=== PATIENT | female | born 1965 | race Caucasian/White ===

== ENCOUNTER → 2020-04-25 13:14 | Outpatient (CLI) | payer OTHER, SELFPAY ==
--- NOTE | ~2020-04-25 | MM_ITS ---
EXAMINATION: MM screening rama BI w migue HISTORY: Screening TECHNIQUE: Craniocaudal and mediolateral oblique 3-D tomosynthesis images were obtained and synthetic 2-D images were generated. CAD analysis was submitted and interpreted. COMPARISON: Comparison to multiple prior studies sequentially, with oldest reviewed study dated 03/2015. BREAST PARENCHYMAL COMPOSITION: There are scattered areas of fibroglandular density. FINDINGS: Left breast asymmetry laterally is stable. There is no evidence of suspicious mass, calcifi cation, or architectural distortion to suggest malignancy in either breast. There has been no suspici ous interval change. IMPRESSION: 1. No mammographic evidence of malignancy. 2. Recommend routine screening mammography in one year. BI-RADS Category 1: Negative Reviewed, dictated and finalized at location A.
== END ==
PROVIDERS: PCP Emergency Medicine; Visit Provider Emergency Medicine
DX: Z12.31 Encounter for screening mammogram for malignant neoplasm of breast (principal)
CPT/HCPCS: 77063; 77067

== ENCOUNTER → 2021-05-27 16:26 | Outpatient (CLI) | payer OTHER, SELFPAY ==
--- NOTE | ~2021-05-27 | MM_ITS ---
EXAMINATION: MM screening [facility] BI w migue HISTORY: Screening TECHNIQUE: Craniocaudal and mediolateral oblique 3-D tomosynthesis images were obtained and synthetic 2-D images were generated. CAD analysis was submitted and interpreted. COMPARISON: Comparison to multiple prior studies sequentially, with oldest reviewed study dated 05/2016. BREAST PARENCHYMAL COMPOSITION: There are scattered areas of fibroglandular density. FINDINGS: There is no evidence of suspicious mass, calcification, or architectural distortion to sugg est malignancy in either breast. There has been no suspicious interval change. IMPRESSION: 1. No mammographic evidence of malignancy. 2. Recommend routine screening mammography in one year. BI-RADS Category 1: Negative Reviewed, dictated and finalized at location A.
== END ==
PROVIDERS: PCP Emergency Medicine; Visit Provider Emergency Medicine
DX: Z12.31 Encounter for screening mammogram for malignant neoplasm of breast (principal)
CPT/HCPCS: 77063; 77067

== ENCOUNTER 2021-11-02 12:06 | Emergency (ER) | payer OTHER, SELFPAY ==
[2021-11-02 12:09] VITALS: BP 181/72; PULSE 104; RESP 17; TEMP 36.7; O2SAT 99
--- NOTE | 2021-11-02 12:47 | ED.UPPEXIN ---
HPI - Extremity Injury (Upper) General Chief Complaint: Extremity Injury, Upper Stated Complaint: left arm injury Time Seen by Provider: 11/02/21 12:26 Source: patient History of Present Illness HPI narrative: Patient presents with left arm paresthesias. Patient reports she has had numbness in her left arm for approximately 1 year she had a Covid vaccination in that arm and has had intermittent symptoms since then. She notes her symptoms are more prominent after she gets a vaccination that arm also after she uses her arm more such as moving wood or working around the house. Her symptoms also become more prominent when she lifts her arm up(abduction). She has paresthesias that started at her shoulder and usually go down to the elbow however over the past week they have been going down to her fingers. She has not noted any weakness she denies any recent trauma she denies any headaches she denies any lower extremity symptoms chest pain or nausea vomiting. She has seen her chiropractor for this has not noted much relief. Related Data Allergies Allergy/AdvReac Type Severity Reaction Status Date / Time No Known Allergies Allergy Verified 11/02/21 12:13 Review of Systems Review of Systems: CONSTITUTIONAL: Denies fever, chills, or sweats. EYES: Denies visual changes, redness, or discharge. ENT: Denies rhinorrhea, congestion, sore throat, or otalgia. CARDIOVASCULAR: Denies chest pain, palpitations, or edema. RESPIRATORY: Denies cough or dyspnea. GASTROINTESTINAL: Denies abdominal pain, nausea, vomiting, or diarrhea. GENITOURINARY: Denies dysuria or hematuria. SKIN: Denies rash or itching. MUSCULOSKELETAL: Denies back pain, joint pain, or myalgia. NEUROLOGIC: Denies headache, dizziness, or weakness. PSYCHIATRIC: Denies anxiety or depression. All systems reviewed & are unremarkable except as noted in HPI and below PMFSH Past Medical History Medical History (Updated 11/02/21 @ 12:56 by Pasquale Kumar MD) Anxiety Exam Narrative: GENERAL: Well-appearing, well-nourished, and in no acute distress. HEAD: Normocephalic, atraumatic. EYES: PERRLA and EOMI. ENT: Nares clear, no rhinorrhea or epistaxis. Mucous membranes moist. NECK: Supple. No masses. No JVD Spurling's negative EXTREMITIES: No focal areas of tenderness on the left shoulder patient has full range of motion has 5 out of 5 strength in the bilateral upper extremity sensation intact to light touch in the bilateral upper extremity cap refill less than 2 seconds the bilateral upper extremity SKIN: Warm, dry, no rash. NEURO: No focal deficits. Alert and oriented x3. PSYCH: Normal mood and affect. Course Vital Signs Vital signs: Vital Signs Temperature 36.7 C 11/02/21 12:09 Pulse Rate 104 H 11/02/21 12:09 Respiratory Rate 17 11/02/21 12:09 Blood Pressure 181/72 H 11/02/21 12:09 Pulse Oximetry 99 11/02/21 12:09 Temperature 36.7 C 11/02/21 12:09 Pulse Rate 104 H 11/02/21 12:09 Respiratory Rate 17 11/02/21 12:09 Blood Pressure 181/72 H 11/02/21 12:09 Pulse Oximetry 99 11/02/21 12:09 MDM - Extremity Injury (Upper) MDM Narrative Medical decision making narrative: H&P as above, vss, pt looks clinically well, exam without focal neurological deficits,llabs/img considered, symptomatic relief available as needed, on reevaluation pt continues to looks clinically well. Suspect pinched nerve, dns fracture, dislocation, major neurovascular compromise, radiculopathy. plan to tx/monitor as op w/ pcm f/u findings/plan discussed with pt, pt agree/comfortable with plan, return precautions given Discharge Plan Discharge Clinical Impression: Arm paresthesia, left Patient Disposition: Home, Self-Care Condition: Improved Instructions: Antibiotic Form, Adhesive Capsulitis (ED), Exercises for Shoulder Flexion and Extension (ED), Exercises for Internal and External Shoulder Rotation (ED), Exercises for Shoulder Abduction and Adduction (ED) Additional
== END 2021-11-02 13:31 | disposition home or self-care (01) ==
PROVIDERS: Emergency Provider Emergency Medicine; PCP Emergency Medicine
DX: R20.2 Paresthesia of skin (principal)
CPT/HCPCS: 99282

== ENCOUNTER 2022-01-09 09:08 | Outpatient (CLI) | payer OTHER, SELFPAY ==
--- NOTE | ~2022-01-09 | US_ITS ---
EXAMINATION: US pelvic complete, US pelvic limited DATE: 01/09/2022 10:04 INDICATION: Pelvic pain. Dysuria. TECHNIQUE: Multiple transabdominal sonographic images of the pelvis were obtained. COMPARISON: None. FINDINGS: The uterus measures 7.5 x 3.3 x 4.6 cm. The endometrial complex measures 4-5 mm in thickness. The le ft and right ovaries are not visualized. There is no free fluid in the pelvis. Bladder appears normal with calculated prevoid volume of 362 mL. Borderline postvoid residual bladder volume of 41 mL. Bila teral ureteral jets visualized in the bladder on color Doppler IMPRESSION: 1. Borderline postvoid residual bladder volume of 41 mL. Otherwise unremarkable pelvic ultrasound. Reviewed, dictated and finalized at location B. IMPRESSION: 1. Borderline postvoid residual bladder volume of 41 mL. Otherwise unremarkable pelvic ultrasound.
--- NOTE | ~2022-01-09 | MMUS_ITS ---
EXAMINATION: MM diagnostic rama BI w migue, US breast RT limited HISTORY: Right axillary pain with right axillary lymphadenopathy. TECHNIQUE: Additional 3-D tomosynthesis images of the breasts were performed and synthetic 2-D images were generated. CAD analysis was submitted and interpreted. High resolution Limited right breast ult rasound was performed. COMPARISON: Comparison to multiple prior studies sequentially, with oldest reviewed study dated 05/2016. BREAST PARENCHYMAL COMPOSITION: Breast composed of scattered areas of fibroglandular density FINDINGS: MAMMOGRAPHIC FINDINGS: There are no suspicious masses, calcifications or architectural distortion to suggest malignancy. ULTRASOUND: Limited right breast ultrasound: There are multiple normal-appearing lymph nodes in the right axilla with a fatty hilum. In addition, at 10:00, 11.5 cm from the nipple there is an oval circumscribed hyp oechoic mass with posterior acoustic enhancement, internal vascularity and effaced hilum measuring up to 1.8 cm, suspicious for pathologic lymph node. IMPRESSION: 1. Probable pathologic right axillary lymph node corresponding to the area of palpable concern. 2. Ultrasound-guided biopsy recommended. BI-RADS category 4, suspicious findings. Reviewed, dictated and finalized at location A. IMPRESSION: 1. Probable pathologic right axillary lymph node corresponding to the area of p alpable concern. 2. Ultrasound-guided biopsy recommended. BI-RADS category 4, suspicious findings.
== END 2022-01-09 09:09 ==
PROVIDERS: PCP Physician Assistant; Visit Provider Physician Assistant
DX: N60.01 Solitary cyst of right breast (principal); R92.8 Other abnormal and inconclusive findings on diagnostic imaging of breast
CPT/HCPCS: 76642; 76856; 76857; 77062; 77066; G0279

== ENCOUNTER 2022-01-23 09:04 | Outpatient (CLI) | payer OTHER, SELFPAY ==
--- NOTE | ~2022-01-23 | US_ITS ---
EXAMINATION: US biopsy lymph node DATE: 01/23/2022 10:15 INDICATION: Enlarged right axillary lymph node TECHNIQUE: The procedure including the risks and benefits was discussed with the patient. Risks discu ssed included bleeding and infection. The patient understood the risks and agreed to proceed. The sk in overlying the right axilla was prepped and draped in usual sterile fashion. Anesthetic was admini stered with 1% lidocaine subcutaneously. A 14 gauge outer needle was advanced into the lymph node of concern utilizing continuous ultrasound guidance. 5 core biopsy specimens were obtained, 2 placed in formalin and 3 in RPMI media. The needle was removed and the entry site was cleaned and dressed. Th ere were no immediate complications. FINDINGS: Images demonstrate a round hypoechoic 1.9 cm mass likely an enlarged lymph node at the right axilla. Subsequent images demonstrate biopsy needle advanced through the mass. IMPRESSION: 1. Successful ultrasound-guided biopsy of a 1.9 cm hypoechoic mass, likely an enlarged lymph node at the right axilla. Reviewed, dictated and finalized at location A. IMPRESSION: 1. Successful ultrasound-guided biopsy of a 1.9 cm hypoechoic mass, likely an e nlarged lymph node at the right axilla.
== END 2022-01-23 09:05 | disposition home or self-care (01) ==
PROVIDERS: PCP Physician Assistant; Visit Provider Physician Assistant
DX: R92.8 Other abnormal and inconclusive findings on diagnostic imaging of breast (principal); R59.0 Localized enlarged lymph nodes; D05.11 Intraductal carcinoma in situ of right breast
CPT/HCPCS: 38505; 76942; 88305; 88307; 88342; 88360

== ENCOUNTER 2022-05-29 10:57 | Emergency (ER) | payer OTHER, SELFPAY ==
--- NOTE | 2022-05-29 11:39 | ED.URI ---
HPI - URI/Sore Throat General Chief Complaint: Upper Respiratory Infection Stated Complaint: cough up phlem, sore throat Time Seen by Provider: 05/29/22 11:39 Source: patient and RN notes reviewed Mode of arrival: ambulatory Limitations: no limitations History of Present Illness HPI Narrative: 56 y/o female with stage 4 lung cancer, presented for c/o cough productive of white sputum with sinus congestion for 2 days. She is scheduled to start chemotherapy in 4 days, and a course of dexamethasone starts the day prior to treatment. Endorses the grandkids and with similar symptoms, and he received abx yesterday. she had negative covid test at home today. Denies chest pain, shortness of breath, wheezing, hemoptysis, fatigue, fevers or chills. Smokes cigarettes occasionally. MD elicited complaint: cough Related Data Home Medications Medication Instructions Recorded Confirmed Alimta 05/29/22 Keytruda 05/29/22 alprazolam 1 mg tablet mg 05/29/22 aspirin 81 mg capsule 81 mg PO DAILY 05/29/22 05/29/22 carboplatin 05/29/22 dexamethasone 4 mg tablet mg 05/29/22 folic acid 1 mg tablet 05/29/22 irbesartan 150 tablet 05/29/22 mg-hydrochlorothiazide 12.5 mg tablet metformin 500 mg tablet mg 05/29/22 ondansetron HCl 8 mg tablet mg 05/29/22 pravastatin 20 mg tablet mg 05/29/22 Allergies Allergy/AdvReac Type Severity Reaction Status Date / Time No Known Allergies Allergy Verified 05/29/22 11:10 Review of Systems Review of Systems: CONSTITUTIONAL: Denies malaise, chills, sweats, fever EYES: Denies visual changes, redness, or discharge ENT: Reports rhinorrhea, congestion, denies sinus pain, otalgia, sore throat CARDIOVASCULAR: Denies chest pain, palpitations, edema RESPIRATORY: Reports cough, post nasal drainage. Denies dyspnea GASTROINTESTINAL: Denies abdominal pain, nausea, vomiting, diarrhea SKIN: Denies rash or itching MUSCULOSKELETAL: Denies myalgia NEUROLOGIC: Denies headache Exam Narrative: GENERAL: well-appearing EYES: conjunctivae clear ENT: Mucous membranes moist. TM pearly rhodes with dull light reflex bilaterally; no tragal tenderness. Oropharynx erythematous without lesions or exudate, no drooling, no hoarseness, no trismus, uvula midline. No tripod positioning, muffled voice, soft palate or pharyngeal wall bulging NECK: Supple. No lymphadenopathy CHEST: Clear to auscultation, breath sounds equal. No respiratory distress, speaks in full sentences. HEART: Regular rate and rhythm. SKIN: Warm, dry, no rash. NEURO: Alert and oriented x3. Course Course Emergency Course: Patient is aware of diagnosis, understands and agrees to treatment plan. Anticipatory guidance given. Patient agrees to follow-up as directed and is aware of reasons to seek care at the emergency department. Portions of this record may have been created with voice recognition software Level of Care: Express Care Visit Vital Signs Vital signs: reviewed MDM - URI/Sore Throat MDM Narrative Medical decision making narrative: Given pt's diagnosis, she is advised to monitor symptoms after starting Zyrtec. Should symptoms worsen significantly she is advised to start the abx. She is well appearing. Advised supportive measures and signs/symptoms to go to the ER. Pt is appropriate for outpt treatment and f/u. Differential Diagnosis Differential diagnosis: Likely upper respiratory infection, sinusitis and viral infection Discharge Plan Discharge Clinical Impression: Upper respiratory infection Patient Disposition: Home, Self-Care Condition: Stable Instructions: Antibiotic Form, Upper Respiratory Infection (ED), Allergic Rhinitis (ED) Additional Instructions: Recommend saline nasal spray and Zyrtec (or Claritin/Taylor) over the counter Cough syrup may cause drowsiness; avoid driving or take it at night time. Tylenol 1000mg every 8 hours as needed for pain/fever Symptomatic treatment includes: rest, fluids, and
== END 2022-05-29 11:56 | disposition home or self-care (01) ==
PROVIDERS: Emergency Provider Nurse Practitioner Family
DX: J06.9 Acute upper respiratory infection, unspecified (principal); C34.90 Malignant neoplasm of unspecified part of unspecified bronchus or lung
CPT/HCPCS: 99203; G0463

== ENCOUNTER 2022-08-06 17:33 | Emergency (ER) | payer OTHER, SELFPAY ==
--- NOTE | 2022-08-06 17:46 | ED.URI ---
HPI - URI/Sore Throat General Chief Complaint: Upper Respiratory Infection Stated Complaint: sore throat Time Seen by Provider: 08/06/22 18:16 Source: patient and RN notes reviewed Mode of arrival: ambulatory Limitations: no limitations History of Present Illness HPI Narrative: 56-year-old female with history of stage IV lung cancer presents with concern for sore throat, cough, exposure to her grand children with strep throat. She denies fever, chills, sweats. MD elicited complaint: cough and sore throat Related Data Home Medications Medication Instructions Recorded Confirmed Cholesterol Med 08/06/22 Htn Med. 08/06/22 alprazolam 1 mg tablet mg 08/06/22 dexamethasone 4 mg tablet mg 08/06/22 folic acid 1 mg tablet 08/06/22 Allergies Allergy/AdvReac Type Severity Reaction Status Date / Time No Known Allergies Allergy Verified 08/06/22 18:00 Review of Systems Review of Systems: CONSTITUTIONAL: Reports malaise. Denies chills, sweats, or fever. EYES: Denies visual changes, redness, or discharge. ENT: Denies rhinorrhea, congestion, sinus pain, otalgia. Reports sore throat. CARDIOVASCULAR: Denies chest pain, palpitations, or edema. RESPIRATORY: Reports cough. Denies dyspnea. GASTROINTESTINAL: Denies abdominal pain, nausea, vomiting, diarrhea SKIN: Denies rash or itching. MUSCULOSKELETAL: Denies myalgia. NEUROLOGIC: Denies headache. All systems reviewed & are unremarkable except as noted in HPI and below PMFSH Family History Family History (Updated 04/11/16 @ 23:21 by DOCTOR UNKNOWN) Father Patient's father is in good health Sibling Patient's sister is in good health Patient's brother is in good health Patient's brother is Mother Family history of lung cancer Patient's mother is Social History Social History Alcohol intake: never Comments At time of signature, agree with nursing past medical, surgical, social and family history. There is no relevant family history pertinent to the presenting complaint Exam Narrative: GENERAL: Well-appearing, well-nourished, and in no acute distress. HEAD: Normocephalic EYES: PERRLA, conjunctivae clear ENT: Nares clear, turbinates edematous and erythematous, clear discharge. Mucous membranes moist. TM pearly rhodse with dull light reflex bilaterally; no tragal tenderness. Oropharynx not erythematous without lesions. Tonsils not enlarged and without exudate, no drooling, no hoarseness, no trismus, uvula midline. NECK: Supple. No lymphadenopathy CHEST: Clear to auscultation, breath sounds equal. No wheezing, rhonchi, rales, or stridor. No respiratory distress, speaks in full sentences. HEART: Regular rate and rhythm. No murmur heard. SKIN: Warm, dry, no rash. NEURO: Alert and oriented x3. PSYCH: Normal mood and affect Course Course Emergency Course: Patient is aware of diagnosis, understands and agrees to treatment plan. Anticipatory guidance given. Patient agrees to follow-up as directed and is aware of reasons to seek care at the emergency department. Portions of this record may have been created with voice recognition software Level of Care: Express Care Visit Vital Signs Vital signs: Reviewed. MDM - URI/Sore Throat MDM Narrative Medical decision making narrative: Differential diagnosis considered: Butt virus, strep pharyngitis, allergic rhinitis, upper respiratory tract infection, sinusitis, rhinosinusitis, nasopharyngitis. viral pharyngitis, otitis media, otitis externa, pneumonia, bronchitis, viral cough syndrome, viral syndrome, and influenza. Exam findings show no acute concerns or changes; patient is non-toxic appearing and is in no distress. Patient is appropriate for outpatient treatment and follow-up. Lab Data Attestation: I reviewed the patient's lab results. Critical Care Time Critical Care Time Critical Care Time: No Discharge Plan Discharge Clinical Impression: Exposure to strep t
[2022-08-06 18:08] VITALS: BP 130/79; PULSE 108; RESP 16; TEMP 37; O2SAT 96
== END 2022-08-06 18:30 | disposition home or self-care (01) ==
PROVIDERS: Emergency Provider Nurse Practitioner
DX: Z20.818 Contact with and (suspected) exposure to other bacterial communicable diseases (principal); C34.90 Malignant neoplasm of unspecified part of unspecified bronchus or lung; E78.00 Pure hypercholesterolemia, unspecified; I10 Essential (primary) hypertension; F41.9 Anxiety disorder, unspecified
CPT/HCPCS: 87081; 87880; 99203; G0463

== ENCOUNTER 2022-11-26 10:45 | Emergency (ER) | payer OTHER, SELFPAY ==
--- NOTE | 2022-11-26 10:55 | ED.URI ---
HPI - URI/Sore Throat General Chief Complaint: Upper Respiratory Infection Stated Complaint: Sinus Time Seen by Provider: 11/26/22 10:56 Source: patient Mode of arrival: ambulatory Limitations: no limitations History of Present Illness HPI Narrative: Marina is a 57-year-old female patient presenting to the clinic today with complaints of sinus congestion, cough, sinus pressure x1 week. She reports she is going to be starting back up with chemo for lung cancer next week and is concerned about infection. States that she is blowing yellow nasal discharge. Cough is nonproductive. MD elicited complaint: sore throat and nasal congestion Related Data Home Medications Medication Instructions Recorded Confirmed Alimta 05/29/22 Keytruda 05/29/22 alprazolam 1 mg tablet mg 05/29/22 aspirin 81 mg capsule 81 mg PO DAILY 05/29/22 05/29/22 carboplatin 05/29/22 dexamethasone 4 mg tablet mg 05/29/22 folic acid 1 mg tablet 05/29/22 irbesartan 150 tablet 05/29/22 mg-hydrochlorothiazide 12.5 mg tablet metformin 500 mg tablet mg 05/29/22 ondansetron HCl 8 mg tablet mg 05/29/22 pravastatin 20 mg tablet mg 05/29/22 Allergies Allergy/AdvReac Type Severity Reaction Status Date / Time No Known Allergies Allergy Verified 05/29/22 11:10 Review of Systems Review of Systems: Pertinent positives per HPI. Patient denies any fever, chills, rash, headache, visual changes, dizziness, cough, shortness of breath, chest pain, palpitations, nausea, vomiting, diarrhea, constipation, abdominal pain, or any urinary issues. PMFSH Comments At the time of my signature, I reviewed and agree with the nursing past medical, surgical, social, and family history. There is no relevant family history pertinent to the patient complaint. Exam Narrative: General: Well-developed, well nourished, in no apparent distress Head: Normocephalic, atraumatic Eyes: Pupils equally round and reactive to light bilaterally, EOM intact, sclera and conjunctive clear, no discharge, lids normal Ears: TMs intact and clear, ear canals clear, no drainage, grossly hearing normal. Nose: Nares patent, no discharge, no inflammation, no sinus tenderness. Mouth: Oral pharynx without lesions or masses, good dentition, MMM. Neck: Supple, trachea midline, no enlargement of anterior or posterior cervical nodes, no thyroid masses or goiter palpable. Cardio: Regular rate and rhythm, s1 and s2 normal, no murmur appreciated. Resp: Clear to auscultation bilaterally, no rhonchi, rales, wheezing or rubs Course Course Emergency Course: Portions of this record may have been created with voice recognition software. Level of Care: Express Care Visit Vital Signs Vital signs: Vital signs reviewed MDM - URI/Sore Throat MDM Narrative Medical decision making narrative: At the time of visit patient is resting comfortably on the exam table. I suspect patient has acute rhinosinusitis. Although her symptoms have only been going on for 1 week she is starting chemotherapy next week so I will go and treat her with an antibiotic to cover any infection as well as some prednisone. States she gets vaginal yeast infections when taking antibiotics so prescription for Diflucan was sent to the pharmacy and supportive measures were discussed with the patient she voiced understanding of discharge instructions and agrees to treatment plan. Differential Diagnosis Differential diagnosis: Likely upper respiratory infection, sinusitis, viral infection, influenza, pharyngitis and other (COVID) Discharge Plan Discharge Clinical Impression: Acute rhinosinusitis Patient Disposition: Home, Self-Care Condition: Stable Instructions: Antibiotic Form, Rhinosinusitis (ED) Additional Instructions: Take prescription medications only as prescribed-prednisone and Augmentin Increase fluids and stay well hydrated Tylenol/motrin for pain/fever Flonase and OTC antihistamines as directed
[2022-11-26 10:58] VITALS: BP 129/76; PULSE 107; RESP 16; TEMP 36.4; O2SAT 97
== END 2022-11-26 11:13 | disposition home or self-care (01) ==
PROVIDERS: Emergency Provider Nurse Practitioner Family; PCP Nurse Practitioner Family
DX: J01.90 Acute sinusitis, unspecified (principal); E78.00 Pure hypercholesterolemia, unspecified; I10 Essential (primary) hypertension; E11.9 Type 2 diabetes mellitus without complications; C34.90 Malignant neoplasm of unspecified part of unspecified bronchus or lung; Z86.16 Personal history of COVID-19
CPT/HCPCS: 99213; G0463

== ENCOUNTER 2023-06-25 08:34 | Emergency (ER) | payer OTHER, SELFPAY ==
[2023-06-25 08:49] VITALS: BP 103/72; PULSE 112; RESP 16; TEMP 37.1; O2SAT 96
[2023-06-25 08:54] VITALS: BP 103/72; PULSE 112; RESP 16; TEMP 37.1; O2SAT 96
--- NOTE | 2023-06-25 09:17 | ED.URI ---
HPI - URI/Sore Throat General Chief Complaint: Upper Respiratory Infection Stated Complaint: cough Time Seen by Provider: 06/25/23 09:00 Source: patient and RN notes reviewed Mode of arrival: ambulatory Limitations: no limitations History of Present Illness HPI Narrative: Patient presents today with a 4 to five-day history of productive cough with green sputum, postnasal drip, nasal congestion. Cough is worse at night when she is lying flat. Denies chest pain, shortness of breath, fever, sore throat. She has not tried any [id number] medication for symptoms prior to arrival. Patient is being treated at [facility] for stage IV lung cancer. She was on azithromycin last month prophylactically for exposure to strep throat and pneumonia, but was not sick at that time. She did call her oncologist when she became sick. They directed her to see her PCP. She called her PCP's office yesterday and scheduled an appointment for this morning. She showed up for her appointment this morning and was told she did not have a scheduled appointment, so she came to [facility] for evaluation. Related Data Home Medications Medication Instructions Recorded Confirmed alprazolam 1 mg tablet 1 mg DIRECTED 05/29/22 06/25/23 aspirin 81 mg capsule 81 mg PO DAILY 05/29/22 06/25/23 folic acid 1 mg tablet 1 mg DIRECTED 05/29/22 06/25/23 irbesartan 150 1 tablet DIRECTED 05/29/22 06/25/23 mg-hydrochlorothiazide 12.5 mg tablet pravastatin 20 mg tablet 20 mg DIRECTED 05/29/22 06/25/23 semaglutide 1 mg/dose (4 mg/3 mL) See Rx Instructions .Route .COMPLEX 06/25/23 06/25/23 subcutaneous pen injector (Ozempic) Allergies Allergy/AdvReac Type Severity Reaction Status Date / Time No Known Allergies Allergy Verified 06/25/23 08:50 Review of Systems Review of Systems: CONSTITUTIONAL: Denies body aches, fever, chills, or sweats. EYES: Denies visual changes, redness, or discharge. ENT: Denies rhinorrhea, sore throat, or otalgia.+ congestion, postnasal drip CARDIOVASCULAR: Denies chest pain, palpitations, or edema. RESPIRATORY: Denies dyspnea.+ cough GASTROINTESTINAL: Denies abdominal pain, nausea, vomiting, or diarrhea. GENITOURINARY: Denies dysuria or hematuria. SKIN: Denies rash, itching, or wounds. MUSCULOSKELETAL: Denies back pain, joint pain, or myalgia. NEUROLOGIC: Denies headache, numbness, tingling, or weakness. PSYCH: Denies depression or anxiety. [facility] Past Medical History Medical History (Updated 06/25/23 @ 09:22 by Mare Lee, TOW MATE, ) Diabetes Lung cancer Comments At time of signature, I have reviewed and agree with nursing past medical, surgical, social and family history unless otherwise noted. Please see nursing chart for further information. There is no relevant family history pertinent to the presenting complaint Exam Narrative: GENERAL: Well-appearing, well-nourished, and in no acute distress. HEAD: Normocephalic, atraumatic. EYES: EOMI. No redness or drainage. Conjunctivae normal. ENT: Mucous membranes pink and moist. Nares clear. No rhinorrhea. TMs normal bilaterally. Throat normal. Uvula midline. NECK: Normal AROM. Supple. No lymphadenopathy. CHEST: No respiratory distress. Slight inspiratory wheezes in the right upper and lower lobes, otherwise clear. HEART: Regular rate and rhythm. No murmur appreciated. Normal peripheral pulses. EXTREMITIES: Normal range of motion. No edema. SKIN: Warm, dry, no rash. Capillary refill normal. Normal skin turgor. NEURO: No focal deficits. Alert and oriented x3. Gait steady. PSYCH: Normal affect. No signs of depression or anxiety. Course Course Level of Care: Express Care Visit Vital Signs Vital signs: Vital Signs Temperature 98.7 F 06/25/23 08:49 Pulse Rate 112 H 06/25/23 08:49 Respiratory Rate 16 06/25/23 08:49 Blood Pressure 103/72 06/25/23 08:49 Pulse Oximetry 96 06/25/23 08:49 Oxygen Delivery Room
== END 2023-06-25 09:29 | disposition home or self-care (01) ==
PROVIDERS: Emergency Provider Nurse Practitioner; PCP Nurse Practitioner Family
DX: J06.9 Acute upper respiratory infection, unspecified (principal); E11.9 Type 2 diabetes mellitus without complications; C34.90 Malignant neoplasm of unspecified part of unspecified bronchus or lung; Z79.82 Long term (current) use of aspirin
CPT/HCPCS: 99213; G0463

== ENCOUNTER 2025-06-18 16:30 | Emergency (ER) | payer OTHER, SELFPAY ==
[2025-06-18 16:38] VITALS: BP 122/63; PULSE 96; RESP 16; TEMP 36.6; O2SAT 97
--- NOTE | 2025-06-18 16:52 | ED_ITS ---
HPI - Skin/Abscess/Foreign Bdy General Chief complaint: Skin/Abscess/Foreign Body Stated complaint: Bump on lip Patient presents to the [facility] with complaints of small slightly painful bump to the left upper lip that she noticed 2 days ago. Patient reports that when has been looked inside mouth thought he could see a small marshall to the area. Patient denies any changes to diet or any injury to the area. No history of abscesses. Denies any dental pain or pain with chewing. Denies fever, chills, body aches, for drainage from the area. Related Data Home Medications ?Medication ?Instructions ?Recorded ?Confirmed ?Last Taken ?Type alprazolam 1 mg tablet 1 mg DIRECTED 05/29/22 Unknown History aspirin 81 mg capsule 81 mg PO DAILY 05/29/2206/14 Unknown History folic acid 1 mg tablet 1 mg DIRECTED 05/29/22 Unknown History irbesartan 150 1 tablet DIRECTED 2 06/25/23 Unknown History mg-hydrochlorothiazide 12.5 mg tablet pravastatin 20 mg tablet 20 mg DIRECTED 05/29/22 1 Unknown History Cholesterol Med 08/06/22 Unknown History Htn Med. 08/06/22 Unknown History alprazolam 1 mg tablet mg 08/06/22 Unknown History dexamethasone 4 mg tablet mg 08/06/22 Unknown History folic acid 1 mg tablet 08/06/22 Unknown History semaglutide 1 mg/dose (4 mg/3 mL) See Rx Instructions .Route .COMPLEX 06/25/23 06/25/23 Unknown History subcutaneous pen injector (Ozempic) Allergies Allergy/AdvReac Type Severity Reaction Status Date / Time No Known Allergies Allergy Verified 06/18/25 16:31 Review of Systems Constitutional: Constitutional: Reports as per HPI, Denies chills, Denies fatigue, Denies fever(s) and Denies weakness Eyes: Eyes: Reports no additional eye complaints ENT: Reports as per HPI, Denies vertigo, Denies dizziness, Denies nasal congestion and Denies sore throat Comments: Small bump to left side upper lobe Cardiovascular: Cardiovascular: Reports no additional cardiovascular complaints Respiratory: Respiratory: Reports no additional respiratory complaints Gastrointestinal: Gastrointestinal: Reports no additional gastrointestinal complaints Genitourinary: Genitourinary: Reports no additional female genitourinary complaints Musculoskeletal: Musculoskeletal: Reports no additional musculoskeletal complaints Integumentary/Breasts: Skin/Breast: Reports as per HPI, Denies erythema, Denies rash and Denies skin ulcer Comments: small slightly painful bump left upper lobe Neurologic: Denies numbness and Denies weakness Psychiatric: Psychiatric: Reports no additional psychiatric complaints Endocrine: Endocrine: Reports no additional endocrine complaints Hematologic/Lymphatic: Hematologic/Lymphatic: Reports no additional hematologic/lymphatic complaints Allergic/Immunologic: Allergic/Immunologic: Reports no additional allergic/immunologic complaints [facility] Past Medical History Medical History (Updated 06/18/25 @ 16:53 by MARIELA Medina-C) Anxiety Diabetes Lung cancer Family History Family History (System 02/01/24 @ 08:26 by Salo Stanley) Father Patient's father is in good health Sibling Patient's sister is in good health Patient's brother is in good health Patient's brother is Mother Family history of lung cancer Patient's mother is Social History Social History (System 02/01/24 @ 08:26 by Salo Stanley) Alcohol intake: never Exam Const: General: healthy appearing and no acute distress Nutritional Appearance: well nourished Orientation/consciousness: patient oriented x3 Limitations: no limitations HENMT: Face and sinus: normal facial exam and sinuses nontender Mouth: Yes Normal oral and palatal mucosa present, No lip normal and Yes moist mucous membranes Teeth and gingiva: dentition normal Throat: posterior oropharynx normal Other: circular firm tender area noted to upper lip on left side. Very small area of pointing inside lip. no active drainage, crusting, erythema Neck: Neck: normal visual inspection and no lymphadenopathy Resp: Effort & Inspection: normal respiratory effort Auscultation: clear to auscultation bilaterally Cardio: Rate: regular rate Rhythm: regular rhythm Skin: General skin exam: normal color Rashes: no rashes Wounds: no wounds Neuro: General: patient oriented x3 Speech: normal speech Gait exam (Neuro): Normal gait present Psych: Mental Status: mental status grossly normal Affect: normal affect Attitude: cooperative Course Course Level of Care: Express Care Visit Vital Signs Vital signs: Vital Signs Temperature 97.9 F 06/18/25 16:38 Pulse Rate 96 06/18/25 16:38 Respiratory Rate 16 06/18/25 16:38 Blood Pressure 122/63 06/18/25 16:38 Pulse Oximetry 97 06/18/25 16:38 Oxygen Delivery Room Air 06/18/25 16:38 Temperature 97.9 F 06/18/25 16:38 Pulse Rate 96 06/18/25 16:38 Respiratory Rate 16 06/18/25 16:38 Blood Pressure 122/63 06/18/25 16:38 Pulse Oximetry 97 06/18/25 16:38 Oxygen Delivery Room Air 06/18/25 16:38 MDM - Skin/Abscess/Foreign Bdy MDM Narrative Medical decision making narrative: Likely abscess in nature due to small pointing and side but very firm area. Offered I&D the patient like to try antibiotics at this time 1st. The patient was evaluated by myself in the [facility] care. History is obtained from patient who is an independent historian and physical exam was performed. Available medical records were reviewed at this time. Exam findings show no acute concerns or changes; patient is non-toxic appearing and is in no distress. Patient is appropriate for outpatient treatment and follow-up. I have evaluated and discussed social determinants of health with the patient that could potentially impact subsequent diagnosis and treatment plans. Differential diagnosis and treatment plan were discussed with the patient. Patient agrees with discussion and after shared medical decision making agrees with plan of care. All questions were answered to the patient's satisfaction. Differential Diagnosis Differential diagnosis: Likely abscess of skin or subcutaneous tissue, urticaria, cellulitis, insect bites, impetigo and contact dermatitis Medical Records Attestation: I reviewed the patient's medical records. Discharge Plan Discharge Clinical Impression: Abscess or cellulitis, oral soft tissue Patient Disposition: Home Condition: Stable Instructions: Antibiotic Form, Abscess (ED) Additional Instructions: DO NOT pick at the area. This will only make the area worse and drive infection deeper. DO NOT pick at the area. This will only make the area worse and drive infection deeper. Clean with soap and water only; Avoid using alcohol and peroxide. apply warm compresses for 20 minute several times a day to help soften the drainage, this may help open the area and cause drainage to come out. Alternate Tylenol/ibuprofen for as needed for pain Acetaminophen(Tylenol) 650- 1000mg every 4-6hours with max of 4000mg/day. Nonsteroidal anti-inflammatory agent (NSAIDs-ibuprofen): 400mg every 4-6hours with max 2400mg/day Take antibiotic until it's gone. If you began to have multiple or reoccurring abscesses in these areas may use daily tea tree body washes or weekly chlorhexidine/Hibiclens washes, bleach baths, or Phisohex change razors or any shaving products you have used around this area. Using fresh towel daily while areas flared up. Please schedule a follow up visit with your personal physician for further evaluation and treatment within 3-5days OR if your symptoms persist, change or worsen significantly before you can contact your personal physician then please, without delay, go to the emergency department for further evaluation. Patient Language: Macedonian Prescriptions: New clindamycin HCl [Cleocin HCl] 300 mg capsule 300 mg PO Q8H Qty: 30 0RF No Action alprazolam 1 mg tablet folic acid 1 mg tablet dexamethasone 4 mg tablet Cholesterol Med Htn Med. Ozempic 1 mg/dose (4 mg/3 mL) pen injector See Rx Instructions .ROUTE .COMPLEX Rx Instructions: Rx irbesartan-hydrochlorothiazide 150-12.5 mg tablet 1 tablet DIRECTED alprazolam 1 mg tablet 1 mg DIRECTED folic acid 1 mg tablet 1 mg DIRECTED pravastatin 20 mg tablet 20 mg DIRECTED aspirin 81 mg Capsule 81 mg PO DAILY Follow-up/Referrals: Julee,LUCY Mccollum [Primary Care Provider, Unknown] Time of Disposition: 16:54
== END 2025-06-18 16:58 | disposition home or self-care (01) ==
PROVIDERS: Emergency Provider Nurse Practitioner Family; PCP Nurse Practitioner Family
DX: K13.0 Diseases of lips (principal); E11.9 Type 2 diabetes mellitus without complications; Z79.85 Long-term (current) use of injectable non-insulin antidiabetic drugs; F41.9 Anxiety disorder, unspecified; Z85.118 Personal history of other malignant neoplasm of bronchus and lung; Z79.82 Long term (current) use of aspirin
CPT/HCPCS: 99213; G0463

== ENCOUNTER 2025-09-07 11:54 | Emergency (ER) | payer OTHER, SELFPAY ==
--- OUTSIDE RECORDS SUMMARY | 2025-09-07 11:56 | XMS_ITS | Clinical Summary ---
Author Organization [facility] Address [address] [address] Care Team Providers Care Scale Model Maker Name Role Phone Chad Blackburn MD Primary Care Provider [phone] Braxton James MD Unavailable [phone] Source Comments [facility],non-owned Affiliates and Associated Physician Practices is amultiple site organization consisting of ambulatory clinics and hospital sitesin [place], [place], [place] and [place]. This disclosure is being madepursuant to the Care Everywhere program and may not contain all information available regarding this patient. 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 Gender Identity Not on file Sexual Orientation Not on file Plan of Treatment Health Maintenance Due Date Last Done Comments COLOGUARD (AGES 45-75) - COL ON CA SCREENING 1963 COLON MONITORING 1963 COLONOSCOPY - COLON CA SCREENING 1963 CT COLONOGRAPHY - COLON CA SCREENING 1963 Colorectal Cancer Screening 1963 FIT - COLON CA SCREENING 1963 FLEX SIG - COLON CA SCREENING 1963 LIPID TESTING 1963 MAMMOGRAM 1963 HIV SCREENING 1978 HEPATITIS C SCREENING 08/26/1981 DTAP/TDAP/TD VACCINES (1 - Tdap) 1982 PNEUMOCOCCAL VACCINE 50+ (1 of 1 - PCV) 2013 ZOSTER VACCINE (1 of 2) 2013 DEPRESSION SCREENING 09/14/2024 COVID-19 VACCINE (1 - 2024-2 6 season) 2025 INFLUENZA VACCINE (#1) 2025 Respiratory Syncytial Virus (RSV) Vaccine Pt: or over 60 yrs (1 - 1-dose 75+ series) 2038 HEPATITIS B VACCINE Aged Out No longe r eligible based on patient's age to complete this topic HIB VACCINE Aged Out No longer eligi ble based on patient's age to complete this topic HPV VACCINE Aged Out No longer eligi ble based on patient's age to complete this topic MENINGOCOCCAL (Group B) VACC INE SHARED DECISION-MAKING Aged Out No longer eligibl e based on patient's age to complete this topic MENINGOCOCCAL GROUPS A/C/Y/W VACCINE Aged Out No longer eligible b ased on patient's age to complete this topic Insurance CIGNA CIGNA Care Teams Scale Model Maker Relationship Specialty Start Date End Date Chad Blackburn MD [address] [place] [address] PCP - General 04/12/18 Braxton James MD [address] [place] [address] 04/12/18
[2025-09-07 11:58] VITALS: BP 144/70; PULSE 108; RESP 20; TEMP 36.1; O2SAT 96
[2025-09-07 12:51] VITALS: BP 149/78; PULSE 92; RESP 16; TEMP 36.7; O2SAT 97
--- NOTE | 2025-09-07 13:09 | ED.SKABFB ---
HPI - Skin/Abscess/Foreign Bdy General Chief complaint: Skin/Abscess/Foreign Body Stated complaint: boil in my private area Time Seen by Provider: 09/07/25 13:03 Source: patient Mode of arrival: ambulatory Limitations: no limitations History of Present Illness HPI narrative: This is a 60-year-old female with history of diabetes who presents to the ED for an abscess. Patient states that for the last 2 days, she has noticed a swelling lateral to her left labia. Today began to drain so her tried to pop it but she was having significant pain and was having a foul odor prompting her to come to the ED. She is not on antibiotics at this time. Denies fevers, chills. Related Data Home Medications ?Medication ?Instructions ?Recorded ?Confirmed ?Last Taken ?Type alprazolam 1 mg tablet 1 mg DIRECTED 05/29/22 06/25/23 Unknown History aspirin 81 mg capsule 81 mg PO DAILY 05/29/22 06/25/23 Unknown History folic acid 1 mg tablet 1 mg DIRECTED 05/29/22 06/25/23 Unknown History irbesartan 150 1 tablet DIRECTED 05/29/22 06/25/23 Unknown History mg-hydrochlorothiazide 12.5 mg tablet pravastatin 20 mg tablet 20 mg DIRECTED 05/29/22 06/25/23 Unknown History Cholesterol Med 08/06/22 Unknown History Htn Med. 08/06/22 Unknown History alprazolam 1 mg tablet mg 08/06/22 Unknown History dexamethasone 4 mg tablet mg 08/06/22 Unknown History folic acid 1 mg tablet 08/06/22 Unknown History semaglutide 1 mg/dose (4 mg/3 mL) See Rx Instructions .Route .COMPLEX 06/25/23 06/25/23 Unknown History subcutaneous pen injector (Ozempic) Allergies Allergy/AdvReac Type Severity Reaction Status Date / Time No Known Allergies Allergy Verified 09/07/25 12:54 Review of Systems Review of Systems: All systems reviewed & are unremarkable except as noted in HPI and below PMFSH Past Medical History Medical History Anxiety Diabetes Lung cancer Family History Family History Father Patient's father is in good health Sibling Patient's sister is in good health Patient's brother is in good health Patient's brother is Mother Family history of lung cancer Patient's mother is Social History Social History Alcohol intake: never Exam Narrative: APPEARANCE: No acute distress, nontoxic, resting in bed HEENT: Normocephalic, atraumatic, OMM RESPIRATORY: No respiratory distress CARDIOVASCULAR: Appears well perfused ABDOMINAL: Nondistended : Transition Teacher present. 1 x 1 cm area of fluctuance inferolateral to the left labia, no active drainage MUSCULOSKELETAl: Moves all extremities. No obvious deformities NEURO: Awake and alert. SKIN:: Warm, dry. No rashes lesions or abrasions PSYCHIATRIC: Normal affect/mood, Course Vital Signs Vital signs: Vital Signs Temperature 97.0 F L 09/07/25 11:58 Pulse Rate 108 H 09/07/25 11:58 Respiratory Rate 20 09/07/25 11:58 Blood Pressure 144/70 H 09/07/25 11:58 Pulse Oximetry 96 09/07/25 11:58 Oxygen Delivery Room Air 09/07/25 11:58 Temperature 98.1 F 09/07/25 12:51 Pulse Rate 93 09/07/25 13:31 Respiratory Rate 16 09/07/25 13:31 Blood Pressure 125/72 09/07/25 13:31 Pulse Oximetry 96 09/07/25 13:31 Oxygen Delivery Room Air 09/07/25 12:51 Procedures Abscess I/D lower extremity: Date of Incision: 09/07/25 Time of Incision: 13:40 Side (if applicable): left (groin) Local Anesthetic: lidocaine 1% and with epi Amount of anesthesia used (mL): 3 Technique: incised with #11 blade Amount of fluid expressed (mL): 5 Irrigation: No Packing used?: none I&D Results: Pus and Blood MDM MDM Narrative Medical decision making narrative: 60-year-old female Presenting for abscess. On initial evaluation patient was in no acute distress afebrile, hemodynamic stable. Differentials include but are not limited to: Abscess, cellulitis, folliculitis Notable exam findings: 1 x 1 cm area of fluctuance inferolateral to the left labia, no active drainage Abscess was drained as above, patient tolerated procedure well. Cultures were sent. Patient was started on Bactrim. She was advised follow-up with her PCP in the next week for re-evaluation. Patient was agreeable to this plan. Given strict return precautions. Differential Diagnosis Differential Diagnosis: Abscess, cellulitis, folliculitis Discharge Plan Discharge Clinical Impression: Abscess Patient Disposition: Home Condition: Stable Instructions: Antibiotic Form, Abscess (ED) Additional Instructions: Take Bactrim as prescribed. Follow-up with your PCP in the next week for re-evaluation. Return to the ED for any new or worsening symptoms. Patient Language: Taiwanese Prescriptions: New sulfamethoxazole-trimethoprim [Bactrim DS] 800-160 mg tablet 1 tablet PO Q12H Qty: 10 0RF No Action alprazolam 1 mg tablet folic acid 1 mg tablet dexamethasone 4 mg tablet Cholesterol Med Htn Med. Ozempic 1 mg/dose (4 mg/3 mL) pen injector See Rx Instructions .ROUTE .COMPLEX Rx Instructions: Rx irbesartan-hydrochlorothiazide 150-12.5 mg tablet 1 tablet DIRECTED alprazolam 1 mg tablet 1 mg DIRECTED folic acid 1 mg tablet 1 mg DIRECTED pravastatin 20 mg tablet 20 mg DIRECTED aspirin 81 mg Capsule 81 mg PO DAILY clindamycin HCl [Cleocin HCl] 300 mg capsule 300 mg PO Q8H Qty: 30 0RF Follow-up/Referrals: Julee,LUCY Mccollum [Primary Care Provider, Unknown]
[2025-09-07] MEDS: SULFAMETHOXAZOLE/TRIMETHOPRIM 800/160 MG DS TABLET 1 TAB PO (13:30)
[2025-09-07 13:31] VITALS: BP 125/72; PULSE 93; RESP 16; O2SAT 96
--- OUTSIDE RECORDS SUMMARY | 2025-09-07 13:46 | XMS_ITS | Clinical Summary ---
Author Organization [facility] Address [address] [address] Care Team Providers Care Managed Care Analyst Name Role Phone Chad Blackburn MD Primary Care Provider [phone] Braxton James MD Unavailable [phone] Source Comments [facility],non-owned Affiliates and Associated Physician Practices is amultiple site organization consisting of ambulatory clinics and hospital sitesin [place], [place], [place] and [place]. This disclosure is being madepursuant to the Care Everywhere program and may not contain all information available regarding this patient. 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
== END 2025-09-07 13:53 | disposition home or self-care (01) ==
PROVIDERS: Emergency Provider Student in an Organized Health Care Education/Training Program; PCP Nurse Practitioner Family
DX: N76.4 Abscess of vulva (principal); F41.9 Anxiety disorder, unspecified; E11.9 Type 2 diabetes mellitus without complications; Z85.118 Personal history of other malignant neoplasm of bronchus and lung; Z79.82 Long term (current) use of aspirin
CPT/HCPCS: 10060; 87070; 87186; 99283; A9270